=== PATIENT | female | born 1965 | race Caucasian/White ===

== ENCOUNTER 2016-12-02 13:26 | Emergency (ER) | payer OTHER ==
[~2016-12-02] VITALS: Ht 170.2 cm; Wt 129.5 kg
[2016-12-02 13:37] VITALS: TEMP 36.6; Ht 170.2 cm; Wt 129.5 kg
[2016-12-02] MEDS ORDERED: SODIUM CHLORIDE 0.9% 1000ML 1,000 ML IV SCH (13:49)
[2016-12-02 13:58] VITALS: O2SAT 98
--- NOTE | 2016-12-02 14:07 | EMERGENCY ROOM VISIT NOTE ---
History Report prepared by Roge: Marshall Lindo Under the Supervision of: Pb PeraltaO. First contact with patient: 13:46 Chief Complaint: NEURO SYMPTOMS Stated Complaint: HEADACHE, HIGH BP Nursing Triage Summary: Reports right sided vision changes around noon. Also reports right sided facial numbness. Bilateral arm weakness. 1245 pt developed headache. Pt standing beside bed during exam. History of Present Illness The patient is a 51 year old female who presents to the Emergency Room with complaints of sudden neuro symptoms that started around 1200 today. She says that her initial symptoms included right-sided facial numbness, right-sided vision changes, weakness in her upper extremities, and high blood pressure. Around a half-hour ago, the patient started having a headache. Most of her symptoms have resolved, except for the headache and upper extremity weakness. She says that the upper extremity weakness has not gotten better at all. The patient denies nausea, vomiting, shortness of breath, neck pain, or speech difficulties. She reports no major medical problems other than arthritis. She does take Effexor daily. The patient uses tobacco products, but does not drink any any alcohol. The patient's mother has a history of strokes. Source of History: patient Onset: 1200 today Position: other (global - neuro symptoms) Timing: other (sudden) Associated Symptoms: + headache, + numbness (right side of face), + weakness (upper extremities), No SOB, No nausea, No neck pain, No vomiting Note: Associated symptoms: Right-sided vision changes, high blood pressure. Denies speech difficulties. Review of Systems See HPI for pertinent positives & negatives. A total of 10 systems reviewed and were otherwise negative. Past Medical & Surgical Medical Problems: (1) Arthritis Surgical Problems: (1) History of arthroscopic knee surgery (2) History of cholecystectomy Family History FHx: stroke Hypertension Social History Smoking Status: Current Every Day Smoker Alcohol Use: none Occupation Status: employed Current/Historical Medications Scheduled Meloxicam (Mobic), 1 TAB PO DAILY Venlafaxine Hcl (Effexor Extended Rel), 150 MG PO DAILY Allergies Coded Allergies: Morphine (Unverified Allergy, Severe, RESP ARREST, 12/02/16) Morphine and Related (Unverified Allergy, Severe, RESP ARREST, 12/02/16) Codeine (Unverified Adverse Reaction, Intermediate, "MAKES ME SICK", ) Physical Exam Vital Signs Date Time Temp Pulse Resp B/P Pulse Ox O2 Delivery O2 Flow Rate FiO2 12/02/16 17:08 78 16 144/81 94 12/02/16 16:37 77 20 151/92 99 Room Air 12/02/16 14:39 80 16 149/75 99 Room Air 12/02/16 14:18 89 12/02/16 13:58 98 Room Air 12/02/16 13:37 36.6 99 18 172/95 97 Physical Exam GENERAL: Patient is awake, alert, and in no acute distress. Patient is resting comfortably and showing no signs of anxiety EYES: The conjunctivae are clear. The pupils are round and reactive. EARS, NOSE, MOUTH AND THROAT: The nose is without any evidence of any deformity. Mucous membranes are moist tongue is midline NECK: The neck is nontender and supple. RESPIRATORY: Normal respiratory effort is noted there is no evidence of wheezing rhonchi or rales CARDIOVASCULAR: Regular rate and rhythm noted there no murmurs rubs or gallops normal S1 normal S2 GASTROINTESTINAL: The abdomen is soft. Bowel sounds are present in all quadrants. Abdomen is nontender MUSCULOSKELETAL/EXTREMITIES: There is no evidence of gross deformity full range of motion is noted in the hips and shoulders SKIN: There is no obvious evidence of any rash. There are no petechiae, pallor or cyanosis noted. NEUROLOGIC: Patient is awake alert and oriented x3 strength is symmetric patellar reflexes are 2+ bilaterally Medical Decision & Procedures ER Provider Diagnostic Interpretation: Radiology results as stated below per my review and radiologist interpretation: HEAD CT NONCONTRAST CT DOSE: 537.48 mGy.cm HISTORY: Mental status change Stroke TECHNIQUE: Multiaxial CT images of the head were performed without the use of intravenous contrast. Comparison: None. Findings: The paranasal sinuses and mastoid air cells are clear. The calvarium and skull base are intact. The ventricles and sulci are within normal limits. There is no mass, hematoma, midline shift, or acute infarct. Impression: No acute intracranial abnormality. Electronically signed by: Jose Pereyra M.D. 12/02/2016 2:27 PM Dictated Date/Time: 12/02/2016 2:26 PM CHEST ONE VIEW PORTABLE CLINICAL HISTORY: Stroke mental status change COMPARISON STUDY: No previous studies for comparison. FINDINGS: The bones soft tissues and hemidiaphragms are normal. The cardiomediastinal silhouette is normal. The lungs are clear. The pulmonary vasculature is normal. IMPRESSION: Negative chest. Electronically signed by: Jose Pereyra M.D. 12/02/2016 3:28 PM Dictated Date/Time: 12/02/2016 3:28 PM Brain MRI WITHOUT CONTRAST HISTORY: right facial numbness, upper ext weakness TECHNIQUE: Multiplanar multisequence MRI of the brain was performed without the use of contrast. COMPARISON STUDY: None. FINDINGS: There is no mass, hematoma, midline shift, or acute infarct. The paranasal sinuses are clear. The mastoid or cells are clear. The ventricles and sulci are within normal limits. A few scattered foci of T2 hyperintensity seen within the periventricular and subcortical white matter are nonspecific but suggestive of mild microvascular ischemic changes. The major vascular flow voids at the skull base are well-maintained. IMPRESSION: No acute intracranial abnormality. A few scattered foci of T2 hyperintensity seen within the periventricular and subcortical white matter are nonspecific but favor mild microvascular ischemic change. A demyelinating process, migraines, or Lyme disease could also have a similar appearance but are considered less likely. Electronically signed by: Ramses Fisher M.D. 12/02/2016 5:54 PM Dictated Date/Time: 12/02/2016 5:41 PM Laboratory Results 12/02/16 14:05 Red Blood Count 4.59, Mean Corpuscular Volume 89.3, Mean Corpuscular Hemoglobin 31.4, Mean Corpuscular Hemoglobin Concent 35.1, Mean Platelet Volume 9.8, Neutrophils (%) (Auto) 61.9, Lymphocytes (%) (Auto) 31.7, Monocytes (%) (Auto) 4.7, Eosinophils (%) (Auto) 1.1, Basophils (%) (Auto) 0.3, Neutrophils # (Auto) 5.76, Lymphocytes # (Auto) 2.95, Monocytes # (Auto) 0.44, Eosinophils # (Auto) 0.10, Basophils # (Auto) 0.03 12/02/16 14:05 Test 12/02/16 14:01 12/02/16 14:05 12/02/16 17:05 Bedside Glucose 215 mg/dl (70-90) White Blood Count 9.31 K/uL (4.8-10.8) Red Blood Count 4.59 M/uL (4.2-5.4) Hemoglobin 14.4 g/dL (12.0-16.0) Hematocrit 41.0 % (37-47) Mean Corpuscular Volume 89.3 fL (80-100) Mean Corpuscular Hemoglobin 31.4 pg (25-34) Mean Corpuscular Hemoglobin Concent 35.1 g/dl (32-36) Platelet Count 250 K/uL (130-400) Mean Platelet Volume 9.8 fL (7.4-10.4) Neutrophils (%) (Auto) 61.9 % Lymphocytes (%) (Auto) 31.7 % Monocytes (%) (Auto) 4.7 % Eosinophils (%) (Auto) 1.1 % Basophils (%) (Auto) 0.3 % Neutrophils # (Auto) 5.76 K/uL (1.4-6.5) Lymphocytes # (Auto) 2.95 K/uL (1.2-3.4) Monocytes # (Auto) 0.44 K/uL (0.11-0.59) Eosinophils # (Auto) 0.10 K/uL (0-0.5) Basophils # (Auto) 0.03 K/uL (0-0.2) RDW Standard Deviation 40.2 fL (36.4-46.3) RDW Coefficient of Variation 12.6 % (11.5-14.5) Immature Granulocyte % (Auto) 0.3 % Immature Granulocyte # (Auto) 0.03 K/uL (0.00-0.02) Prothrombin Time 10.6 SECONDS (9.0-12.0) Prothromb Time International Ratio 1.0 (0.9-1.1) Activated Partial Thromboplast Time 26.5 SECONDS (21.0-31.0) Partial Thromboplastin Ratio 1.0 Anion Gap 9.0 mmol/L (3-11) Est Creatinine Clear Calc Drug Dose 97.0 ml/min Estimated GFR () 80.3 Estimated GFR (Non- 69.3 BUN/Creatinine Ratio 13.6 (10-20) Calcium Level 8.8 mg/dl (8.5-10.1) Total Bilirubin 0.4 mg/dl (0.2-1) Direct Bilirubin < 0.1 mg/dl (0-0.2) Aspartate Amino Transf (AST/SGOT) 17 U/L (15-37) Alanine Aminotransferase (ALT/SGPT) 37 U/L (12-78) Alkaline Phosphatase 95 U/L (45-117) Total Creatine Kinase 134 U/L (26-192) Creatine Kinase MB 1.2 ng/ml (0.5-3.6) Creatine Kinase MB Ratio 0.9 (0-3.0) Troponin I < 0.015 ng/ml (0-0.045) Total Protein 7.4 gm/dl (6.4-8.2) Albumin 3.6 gm/dl (3.4-5.0) Urine Color YELLOW Urine Appearance CLEAR (CLEAR) Urine pH 5.0 (4.5-7.5) Urine Specific [place] 1.024 (1.000-1.030) Urine Protein NEG (NEG) Urine Glucose (UA) 2+ (NEG) Urine Ketones TRACE (NEG) Urine Occult Blood NEG (NEG) Urine Nitrite NEG (NEG) Urine Bilirubin NEG (NEG) Urine Urobilinogen NEG (NEG) Urine Leukocyte Esterase SMALL (NEG) Urine WBC (Auto) 5-10 /hpf (0-5) Urine RBC (Auto) 0-4 /hpf (0-4) Urine Hyaline Casts (Auto) 1-5 /lpf (0-5) Urine Epithelial Cells (Auto) >30 /lpf (0-5) Urine Bacteria (Auto) NEG (NEG) Laboratory results per my review. Medications Administered Medications (Trade) Dose Ordered Sig/Henry Route Start Time Stop Time Status Last Admin Dose Admin Sodium Chloride (Nss 1000ml) 1,000 ml @ 50 mls/hr Q20H IV 12/02/16 13:49 01/01/17 13:48 12/02/16 14:34 50 MLS/HR ECG Indication: weakness Rate (beats per minute): 82 Rhythm: normal sinus Findings: no ectopy, other (RBBB pattern noted) Comparison ECG Date: no prior available ED Course 1345: The patient was evaluated in room B1. A complete history and physical examination were performed. 1349: Ordered NSS 1000 ml @ 50 mls/hr IV. 1549: I reevaluated the patient and she does not want to stay. She is agreeable to getting a normal MRI without contrast before she leaves, which will make me feel better about her going home. 1800: Upon reevaluation, the patient is resting comfortably. I discussed the results and treatment plan with her. She verbalized agreement of the treatment plan. She was discharged home. Medical Decision Differential diagnosis: Etiologies such as metabolic, infection, hypo/hyperglycemia, electrolyte abnormalities, cardiac sources, intracerebral event, toxicologic, neurologic, as well as others were entertained. Nursing notes reviewed. The patient is a 51-year-old female who presented to the emergency department for an evaluation of possible neurologic problems. The patient describes right sided facial numbness as well as upper extremity weakness which is bilateral. The patient also describes a headache. The patient did not have any focal neurologic deficit on physical exam. Her CAT scan did not show any acute disease. I discussed the patient's laboratory and radiographic studies with her. She was treated with IV fluids. Her symptoms did not appear to be consistent with an acute stroke. I discussed workup with the patient and offered to have her evaluated by the hospitalist group for inpatient management and further stroke workup but she states that she had a similar episode a few years ago and had a complete workup at an outside facility which did not show a cause for her complaints. The patient agreed to have an MRI in the emergency department. I discussed follow-up with the patient and encouraged her to rest and avoid any strenuous activity. She was encouraged to call her primary care physician to schedule a follow-up appointment versus possible for further testing and return to the emergency department immediately if symptoms change worsen or the need arises. The patient's MRI did show some questionable areas which could be consistent with Lyme disease. I discussed this with the patient and she does not feel that she would be at risk for this. She does not spend time in the [place]. She does not have recollection of a tick bite or rash. She was encouraged to have this testing done as an outpatient if her family doctor felt this was more likely. Certainly if she develops a facial droop consistent with Ruvalcaba's palsy I would recommend a Lyme titer be drawn. Impression Primary Impression: Weakness Additional Impression: Headache Scribe Attestation The scribe's documentation has been prepared under my direction and personally reviewed by me in its entirety. I confirm that the note above accurately reflects all work, treatment, procedures, and medical decision making performed by me. Departure Information Dispostion Home / Self-Care Referrals No Doctor, Assigned (PCP) Forms HOME CARE DOCUMENTATION FORM, IMPORTANT VISIT INFORMATION, WORK / SCHOOL INSTRUCTIONS, Work Instructions Patient Instructions My [facility], TIA Additional Instructions Call your family to schedule follow-up appointment. Rest and avoid any strenuous activity. Return to the emergency department immediately if symptoms change worsen or the need arises. Otherwise discussed follow-up with your primary care physician. You may require further studies such as echocardiogram or carotid Dopplers to further evaluate the cause your symptoms. Problem Qualifiers Additional Impression: Headache Headache type: unspecified Headache chronicity pattern: unspecified pattern Intractability: not intractable Qualified Codes: R51 - Headache
[2016-12-02] MEDS ORDERED: VENL150C56 PO (14:10)
[2016-12-02] MEDS ORDERED: MELO7.5T6 PO (14:10)
[2016-12-02 14:14] LABS: BASO % 0.3 %; BASO ABS # 0.03 K/uL (0-0.2); COMPLETE YES; EOS % 1.1 %; IG% 0.3 %; LYMPH % 31.7 %; LYMPH ABS # 2.95 K/uL (1.2-3.4); MEAN CELL VOLUME 89.3 fL (80-100); MEAN CORPUSCULAR HEMOGLOBIN 31.4 pg (25-34); MEAN CORPUSCULAR HGB CONC 35.1 g/dl (32-36); MEAN PLATELET VOLUME 9.8 fL (7.4-10.4); MONO % 4.7 %; NEUT % 61.9 %; PLATELET COUNT 250 K/uL (130-400); RED BLOOD COUNT 4.59 M/uL (4.2-5.4); WHITE BLOOD COUNT 9.31 K/uL (4.8-10.8)
[2016-12-02 14:23] LABS: PROTHROMBIN TIME (PATIENT) 10.6 SECONDS (9.0-12.0)
--- NOTE | 2016-12-02 14:29 | DIAGNOSTIC IMAGING REPORT ---
HEAD CT NONCONTRAST CT DOSE: 537.48 mGy.cm HISTORY: Mental status change Stroke TECHNIQUE: Multiaxial CT images of the head were performed without the use of intravenous contrast. Comparison: None. Findings: The paranasal sinuses and mastoid air cells are clear. The calvarium and skull base are intact. The ventricles and sulci are within normal limits. There is no mass, hematoma, midline shift, or acute infarct. Impression: No acute intracranial abnormality. Electronically signed by: Jose Pereyra M.D. 12/02/2016 2:27 PM Dictated Date/Time: 12/02/2016 2:26 PM
[2016-12-02 14:58] LABS: ALKALINE PHOSPHATASE 95 U/L (45-117); ALT/SGPT 37 U/L (12-78); BLOOD UREA NITROGEN 13 mg/dl (7-18); BUN/CREATININE RATIO 13.6 (10-20); CALCIUM 8.8 mg/dl (8.5-10.1); CARBON DIOXIDE 25 mmol/L (21-32); CHLORIDE 106 mmol/L (98-107); CREATININE 0.94 mg/dl (0.60-1.20); GLUCOSE 223 mg/dl (70-99)
[2016-12-02 15:03] LABS: POTASSIUM 3.9 mmol/L (3.5-5.1); SODIUM 140 mmol/L (136-145)
[2016-12-02 15:12] LABS: AST/SGOT 17 U/L (15-37); CKMB/CK RATIO 0.9 (0-3.0)
--- NOTE | 2016-12-02 15:30 | DIAGNOSTIC IMAGING REPORT ---
CHEST ONE VIEW PORTABLE CLINICAL HISTORY: Stroke mental status change COMPARISON STUDY: No previous studies for comparison. FINDINGS: The bones soft tissues and hemidiaphragms are normal. The cardiomediastinal silhouette is normal. The lungs are clear. The pulmonary vasculature is normal. IMPRESSION: Negative chest. Electronically signed by: Jose Pereyra M.D. 12/02/2016 3:28 PM Dictated Date/Time: 12/02/2016 3:28 PM
[2016-12-02 17:29] LABS: URINE APPEARANCE CLEAR (CLEAR); URINE BILIRUBIN NEG (NEG); URINE COLOR YELLOW; URINE EPITHELIAL CELL AUTO >30 /lpf (0-5); URINE NITRITE NEG (NEG); URINE SPECIFIC GRAVITY 1.024 (1.000-1.030); UROBILINOGEN NEG (NEG)
[2016-12-02 17:31] LABS: MANUAL MICROSCOPIC REQUIRED? NO; REVIEW REQ? NO
--- NOTE | 2016-12-02 17:56 | DIAGNOSTIC IMAGING REPORT ---
Brain MRI WITHOUT CONTRAST HISTORY: right facial numbness, upper ext weakness TECHNIQUE: Multiplanar multisequence MRI of the brain was performed without the use of contrast. COMPARISON STUDY: None. FINDINGS: There is no mass, hematoma, midline shift, or acute infarct. The paranasal sinuses are clear. The mastoid or cells are clear. The ventricles and sulci are within normal limits. A few scattered foci of T2 hyperintensity seen within the periventricular and subcortical white matter are nonspecific but suggestive of mild microvascular ischemic changes. The major vascular flow voids at the skull base are well-maintained. IMPRESSION: No acute intracranial abnormality. A few scattered foci of T2 hyperintensity seen within the periventricular and subcortical white matter are nonspecific but favor mild microvascular ischemic change. A demyelinating process, migraines, or Lyme disease could also have a similar appearance but are considered less likely. Electronically signed by: Ramses Fisher M.D. 12/02/2016 5:54 PM Dictated Date/Time: 12/02/2016 5:41 PM
[2016-12-02 18:21] VITALS: BP 144/89; PULSE 86; O2SAT 99
== END 2016-12-02 18:22 | disposition home or self-care (01) ==
LOC: C.EDB 13:29 → C.EDA 18:22
DX: R53.1 Weakness (principal); R51 Headache; M19.90 Unspecified osteoarthritis, unspecified site; F17.200 Nicotine dependence, unspecified, uncomplicated; Z96.659 Presence of unspecified artificial knee joint; Z79.899 Other long term (current) drug therapy; Z90.49 Acquired absence of other specified parts of digestive tract; Z88.5 Allergy status to narcotic agent; Z82.3 Family history of stroke; Z82.49 Family history of ischemic heart disease and other diseases of the circulatory system